=== PATIENT | female | born 1935 | race Caucasian/White ===

== ENCOUNTER → 2018-04-25 04:00 | Outpatient (REF) | payer MEDICARE, SELFPAY ==
[2018-04-25 09:45] LABS: Hematocrit 27.5 % (37-47); Hemoglobin 8.3 g/dl (12.0-15.0); Mean Corp Hgb Conc 30.2 g/gl (32-36); Mean Corpuscular Hgb 24.4 pg (27.0-32.0); Mean Corpuscular Volume 80.9 fL (81-99); Mean Platelet Vol. 9.6 fl (6.2-12.0); Platelet Count 641 K/mm3 (150-450); RBC Distribution Width SD 51.5 fl (35.1-43.9); White Blood Count 7.2 K/mm3 (4.4-11.0)
[2018-04-25 09:46] LABS: Scan Indicated on CBC? Y/N NO
[2018-04-25 09:59] LABS: AST(SGOT) 17 U/L (15-37); Alanine Aminotransfer ALT/SGPT 15 U/L (13-56); Albumin, Serum 2.3 g/dL (3.2-5.0); Alkaline Phosphatase 162 U/L (45-117); Anion Gap 8 (5-15); BUN 10 mg/dL (7-18); BUN/Creat Ratio 19.2 RATIO (10-20); Bilirubin, Direct 0.11 mg/dL (0.00-0.30); Calcium,Total 8.2 mg/dL (8.5-10.1); Chloride 102 mmol/L (98-107); Creatinine, Serum 0.52 mg/dL (0.55-1.02); EST Glomerular Filtration Rate 120 mL/min (>60); Est Glom Filt Rate - Afr Amer 145 mL/min (>60); Globulin 3.4 g/dL (2.2-4.2); Glucose 104 mg/dL (74-106); Potassium 4.1 mmol/L (3.5-5.1); Protein, Total 5.7 g/dL (6.4-8.2); Sodium Level 135 mmol/L (136-145)
== END ==
LOC: OLS.ACW200 04:00
PROVIDERS: Visit Provider Family Medicine
DX: M96.1 Postlaminectomy syndrome, not elsewhere classified (principal); R27.9 Unspecified lack of coordination; R26.2 Difficulty in walking, not elsewhere classified; M43.26 Fusion of spine, lumbar region; N39.0 Urinary tract infection, site not specified
CPT/HCPCS: 36415; 80048; 80076; 85027

== ENCOUNTER → 2018-05-16 12:30 | Outpatient (REF) | payer MEDICARE, SELFPAY ==
[2018-05-16 18:22] LABS: Color, Urine Amber (Yellow); Glucose, Dipstick Normal (Normal); Ketone-Dipstick Negative (Negative); Leukocyte Esterase-Dipstick 500 /ul (Negative); Nitrite-Dipstick Positive (Negative); Occult Blood-Urine Negative /ul (Negative); Protein-Dipstick Negative (Negative); Urine Clarity Sl. Cloudy (Clear); Urine Urobilinogen 1 mg/dl (Normal)
[2018-05-16 18:23] LABS: Urine Bilirubin Dipstick 1 mg/dL (Negative)
== END ==
LOC: OLS.ACW200 12:30
PROVIDERS: Visit Provider Family Medicine
DX: M96.1 Postlaminectomy syndrome, not elsewhere classified (principal); R27.9 Unspecified lack of coordination; R26.2 Difficulty in walking, not elsewhere classified; M43.26 Fusion of spine, lumbar region; N39.0 Urinary tract infection, site not specified
CPT/HCPCS: 81002; 87086; 87088; 87186